=== PATIENT | female | born 1990 | race African-American/Black ===

== ENCOUNTER 2020-05-06 14:29 | Emergency (ER) | payer BC, OTHER ==
[2020-05-06 15:03] VITALS: BP 123/59; PULSE 68; TEMP 98.3; BMI 43.5
[2020-05-06] MEDS ORDERED: ONDANSETRON 4 MG/2 ML VIAL IVPUSH ONE (15:29)
[2020-05-06] MEDS ORDERED: morphine CARPU-JECT 4 MG/1 ML DISP.SYRIN IVPUSH ONE ×2 (15:29→16:43)
[2020-05-06] MEDS ORDERED: morphine SULFATE 4 MG/ML VIAL ONE (15:38)
--- NOTE | 2020-05-06 15:46 | PDOC ---
History of Present Illness - General Chief Complaint: Vaginal Bleeding Stated Complaint: Vaginal Bleeding Time Seen by Provider: 05/06/20 14:44 - History of Present Illness Initial Comments: 05/06/20 15:41 29F at reported 7.5 weeks by previous ultrasound with PMH of endometriosis and PCOS presents with vaginal bleeding, lower abdominal pain, and intractable vomiting since having a reported miscarriage two days prior. She said she was evaluated at [facility] and sent home with percocet for pain. Reports soaking two pads with blood and clots today, and 10 pads total. Denies fever. States she has not been able to keep anything down since this started. Normal BMs and passing gas. Has had three first trimester miscarriages. History of trichomonas. No other STIs reported. Occasional alcohol use, former smoker, no drug use. EMS gave 1000ml IVF and 4mg Zofran IV. Patient gave consent to access [facility] records. [facility] 05/05/20: Hg 10.1 HCG quant 59539.3 TVUS on April 21: IUP at 6wks and 1 day by crown-rump length TVUS on May 05: nonvisualization of previously noted gestational sac suggesting in progress, thickened endometrium suggesting underlying hemorrhagic material PMH/PSH: none Meds: percocet and naproxen Allergies: none PCP: Weston HUANG: Terrance MELO GENERAL/CONSTITUTIONAL: No fever or chills. No weakness. HEAD, EYES, EARS, NOSE AND THROAT: No change in vision. No ear pain or discharge. No sore throat. CARDIOVASCULAR: No chest pain or shortness of breath RESPIRATORY: No cough, wheezing, or hemoptysis. GASTROINTESTINAL: nausea, vomiting. no diarrhea or constipation. GENITOURINARY: No dysuria, frequency, or change in urination. MUSCULOSKELETAL: No joint or muscle swelling or pain. No neck or back pain. SKIN: No rash NEUROLOGIC: No headache, vertigo, loss of consciousness, or change in strength/sensation. ENDOCRINE: No increased thirst. No abnormal weight change HEMATOLOGIC/LYMPHATIC: No anemia, easy bleeding, or history of blood clots. ALLERGIC/IMMUNOLOGIC: No hives or skin allergy. PE GENERAL: Awake, alert, and fully oriented, in distress HEAD: No signs of trauma, normocephalic, atraumatic EYES: PERRLA, EOMI, sclera anicteric, conjunctiva clear ENT: Auricles normal inspection, hearing grossly normal, nares patent, jade pharynx clear without exudates. Moist mucosa NECK: Normal ROM, supple, no lymphadenopathy, JVD, or masses LUNGS: No distress, speaks full sentences, clear to auscultation bilaterally HEART: Regular rate and rhythm, normal S1 and S2, no murmurs, rubs or gallops, peripheral pulses normal and equal bilaterally. ABDOMEN: Soft, lower abdominal tenderness without guarding or rebound. EXTREMITIES : Normal inspection, Normal range of motion, no edema. No clubbing or cyanosis. NEUROLOGICAL: Normal speech, no focal sensorimotor deficits SKIN: Warm, Dry, normal turgor, no rashes or lesions noted PELVIC: some blood, unsure if os is open or closed based on my exam Vital Signs Temp Pulse Resp BP Pulse Ox 98.3 F 68 19 123/59 L 100 05/06/20 15:01 05/06/20 15:01 05/06/20 15:01 05/06/20 15:01 05/06/20 15:01 05/06/20 15:56 MDM: 29F at reported 7.5 weeks by previous ultrasound with PMH of endometriosis and PCOS presents with vaginal bleeding, lower abdominal pain, and intractable vomiting since having a reported miscarriage two days prior. TVUS from [facility] confirms in progress. -CBC, CMP, coags, T&S -TVUS -4mg zofran and 4mg morphine 05/06/20 16:52 Repeat Vitals: HR 72, BP 134/65 Patient still in pain. Will give 1000mg tylenol IV, and plan for additional 4mg of morphine IV if no improvement 05/06/20 17:02 Patient reports amazement at the effects of IV tylenol and reports that she is no longer in pain 05/06/20 18:51 TVUS: Real time examination of the pelvis utilizing both the transabdominal and transvaginal probes demonstrates the following: The uterus is slightly enlarged measuring 11.4 x 5.8 x 5.6 cm. No uterine masses are seen. Echogenic and heterogeneous material is noted within the endometrial cavity that most likely represents retained blood and blood clots. There is no definite evidence of retained products of conception. The right ovary is normal in size and texture with arterial and venous venous flow documented to the ovary. The left ovary could not be identified. There is no evidence of adnexal masses. There is a trace amount of free fluid within the cul-de-sac. IMPRESSION: Echogenic and heterogeneous material within the endometrial cavity most likely representing blood/blood clots. No definite evidence of retained products of conception. Please see above discussion. Labs: notable for Hgb 10.4 (was 10.1 yesterday at [place]), Beta-Hcg 3892.6 (down from 32680.3 yesterday). Laboratory Results - last 24 hr 05/06/20 05/06/20 05/06/20 15:35 15:35 15:35 WBC 5.0 RBC 3.44 L Hgb 10.4 L Hct 31.1 L MCV 90.3 MCH 30.1 MCHC 33.3 RDW 14.9 D Plt Count 333 MPV 8.0 D Absolute Neuts (auto) 3.7 Neutrophils % 72.9 Lymphocytes % 18.5 D Monocytes % 7.4 Eosinophils % 0.5 D Basophils % 0.7 Nucleated RBC % 0 PT with INR 12.70 INR 1.08 PTT (Actin FS) 27.7 Sodium 140 Potassium 3.9 Chloride 110 H Carbon Dioxide 22 Anion Gap 7 L BUN 6.9 L Creatinine 0.7 Est GFR (CKD-EPI)AfAm 134.75 Est GFR (CKD-EPI)NonAf 116.26 Random Glucose 84 Calcium 8.6 Total Bilirubin 0.4 AST 15 ALT 15 Alkaline Phosphatase 59 Total Protein 6.9 Albumin 3.3 L Beta HCG, Quant 3892.6 Blood Type Antibody Screen 05/06/20 15:35 WBC RBC Hgb Hct MCV MCH MCHC RDW Plt Count MPV Absolute Neuts (auto) Neutrophils % Lymphocytes % Monocytes % Eosinophils % Basophils % Nucleated RBC % PT with INR INR PTT (Actin FS) Sodium Potassium Chloride Carbon Dioxide Anion Gap BUN Creatinine Est GFR (CKD-EPI)AfAm Est GFR (CKD-EPI)NonAf Random Glucose Calcium Total Bilirubin AST ALT Alkaline Phosphatase Total Protein Albumin Beta HCG, Quant Blood Type A POSITIVE Antibody Screen Negative Signed out to night team. Awaiting call back from patient's OBGYN. Past History - Medical History Allergies/Adverse Reactions: Allergies Allergy/AdvReac Type Severity Reaction Status Date / Time No Known Allergies Allergy Verified 05/06/20 15:03 Home Medications: Ambulatory Orders Ibuprofen 600 mg PO Q6H #30 tablet 05/06/20 Naproxen 500 mg PO BID 05/06/20 COPD: No Thyroid Disease: No Other medical history: Endomitriosis - Reproductive History Is Patient Now?: No (#): 4 Para: 0 Cervical CA: No Dysfunctional Uterine Bleeding: No Ectopic : No Endometrial CA: No Polycystic Ovaries: No Therapeutic (s) & number: No Tubal Ligation: No Spontaneous : 4 - Psycho-Social/Smoking History Smoking History: Never smoked Have you smoked in the past 12 months: No Number of Cigarettes Smoked Daily: 0 Cigars Per Day: 0 Information on smoking cessation initiated: No - Substance Abuse Hx (Audit-C & DAST Scrn) How often the patient has a drink containing alcohol: Never Score: In Men: 4 or > Positive; In Women: 3 or > Positive: 0 Screen Result (Pos requires Nsg. Audit-10AR): Negative In the last yr the pt used illegal drug/Rx for NonMed reason: No Score: Yes response is considered Positive: 0 Screen Result (Positive result requires Nsg. DAST-10): Negative *Physical Exam - Vital Signs Last Vital Signs Temp Pulse Resp BP Pulse Ox 98.3 F 68 19 123/59 L 100 05/06/20 15:01 05/06/20 15:01 05/06/20 15:01 05/06/20 15:01 05/06/20 15:01 ED Treatment Course - LABORATORY CBC & Chemistry Diagram: 05/06/20 15:35 05/06/20 15:35 Discharge - Discharge Information Problems reviewed: Yes Clinical Impression/Diagnosis: Incomplete , Intractable nausea and vomiting Condition: Stable Disposition: HOME - Additional Discharge Information Prescriptions: Ibuprofen 600 mg PO Q6H #30 tablet - Follow up/Referral Referrals: Nikita Sexton [Primary Care Provider] - - Patient Discharge Instructions Patient Printed Discharge Instructions: DI for Miscarriage Additional Instructions: You should return to the hospital if you continue to have, persistent pelvic pain not relieved by your prescribed medications, dizziness, shortness of breath, new and persistent fevers, other foul smelling discolored vaginal discharge, or for any other concerns. 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 - Post Discharge Activity
--- NOTE | 2020-05-06 15:53 | PDOC ---
Documentation entered by Ashleigh Mann SCRIBE, acting as scribe for Erwin Perez MD. Erwin Perez MD: This documentation has been prepared by the amandaibeJohnathan Lincy, SCRIBE, under my direction and personally reviewed by me in its entirety. I confirm that the documentation accurately reflects all work, treatment, procedures, and medical decision making performed by me. Attending Attestation - Resident Resident Name: HiginioloreneshainaGregory - ED Attending Attestation I have performed the following: I have examined & evaluated the patient, The case was reviewed & discussed with the resident, I agree w/resident's findings & plan, Exceptions are as noted - HPI HPI: 05/06/20 15:29 The patient is a 29-year-old female, with a past medical history significant for endometriosis and PCOS who presents to the emergency department with persistent lower abdominal pain (worse on the left), nausea, and vomiting (with difficulty tolerating PO), and vaginal bleeding. The patient reports continuous vaginal bleeding with clot passing for the past 2 days, reports she went through 2 pads today. The patient reports she was seen at [facility] on Monday (05/04) for the symptoms, states they were unable to get in contact with [employer] and she was discharged home after a shot in the arm. patient reports she doesnt recall the name of the medication but reports it starts with a M. Denies fever or chills. - Physicial Exam PE: 05/06/20 15:51 Awake, alert, obese, in moderate distress Normocephalic and atraumatic PERRLA, EOMI, no scleral icterus, conjunctiva pink mmm cta rrr Abdomen soft, nondistended, bilateral lower quadrant tenderness to deep palpation; no CVA tenderness Pelvis is stable - Medical Decision Making 05/06/20 15:52 Patient is a 29-year-old female, 4 para 0, presents with persistent vaginal bleeding and abdominal pain after being diagnosed with an incomplete at [facility]. Patient received an unknown intramuscular injection prior to discharge. In the ER, patient is noted to be writhing in pain, afebrile, nontoxic-appearing. No evidence of acute abdomen is present. Will obtain transvaginal ultrasound to rule out products of conception. Will consult [facility] as needed. Discharge - Discharge Information Problems reviewed: Yes Clinical Impression/Diagnosis: Intractable nausea and vomiting, Incomplete - Follow up/Referral Referrals: Nikita Sexton [Primary Care Provider] - - Patient Discharge Instructions - Post Discharge Activity
[2020-05-06 16:21] LABS: BASO % 0.7 % (0-2.0); EOS % 0.5 % (0-4.5); HEMATOCRIT 31.1 % (32.4-45.2); HEMOGLOBIN 10.4 GM/dL (10.7-15.3); LYMPH % 18.5 % (8-40); MCH 30.1 pg (25.7-33.7); MCHC 33.3 g/dl (32.0-36.0); MEAN CELL VOLUME 90.3 fl (80-96); MONO % 7.4 % (3.8-10.2); NEUT % 72.9 % (42.8-82.8); PLATELET COUNT 333 K/MM3 (134-434); RBC 3.44 M/mm3 (3.60-5.2); RDW 14.9 % (11.6-15.6)
[2020-05-06 16:24] LABS: INR 1.08 (0.83-1.09); PROTHROMBIN TIME (PATIENT) 12.7 SEC (9.7-13.0)
[2020-05-06 16:27] LABS: ACTIVATED PTT 27.7 SECONDS (25.2-36.5)
[2020-05-06] MEDS ORDERED: ACETAMINOPHEN 1000 MG/100 ML VIAL (NON FORMULARY) IVPB ONE (16:44)
[2020-05-06] MEDS ORDERED: ACETAMINOPHEN INJECTION 100 ML IVPB ONE (16:47)
[2020-05-06 17:00] LABS: ALBUMIN 3.3 g/dl (3.4-5.0); BILIRUBIN,TOTAL 0.4 mg/dL (0.2-1); BLOOD UREA NITROGEN 6.9 mg/dL (7-18); CALCIUM 8.6 mg/dL (8.5-10.1); CREATININE 0.7 mg/dL (0.55-1.3); POTASSIUM 3.9 mmol/L (3.5-5.1); TOT PROT 6.9 g/dl (6.4-8.2)
--- OUTSIDE RECORDS SUMMARY | 2020-05-06 19:00 | XMS ---
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 Source(s) Document(s ) Leukocytes 8.3 [place] [#/volume] in 10*3/uL Hospital Blood by Automated count ID Date Data Source [id number] 05/04/2020 04:07:00 PM [facility] Value Range Interpretation Code Description Data Supporting Source(s) Document(s ) Leukocyte 1+ [place] esterase Hospital [Presence] in Urine by Test strip ID Date Data Source [id number] 05/04/2020 04:07:00 PM EDT [facility] Name Value Range Interpretation Description Data Sup porting Code Source(s) Document(s ) URINE NEGATIVE [place] NITRITES Hospital ID Date Data Source [id number] 05/04/2020 04:07:00 PM EDT [facility] Name Value Range Interpretation Description Data Sup porting Code Source(s) Document(s ) Erythrocytes 3+ [place] [#/volume] in Hospital Urine by Test strip ID Date Data Source [id number] 05/04/2020 04:07:00 PM EDT [facility] Value Range Interpretation Code Description Data Sulema rce(s) Supporting Document(s ) Bilirubin. NEGATIVE [place] total Hospital [Presence] in Urine by Test strip ID Date Data Source [id number] 05/04/2020 04:07:00 PM EDT [facility] Value Range Interpretation Description Data Sup porting Code Source(s) Document(s ) Urobilinogen 0.2 [place] [Units/volume] mg/dL Hospital in Urine by Test strip ID Date Data Source [id number] 05/04/2020 04:07:00 PM EDT [facility] Value Range Interpretation Code Description Data Sulema rce(s) Supporting Document(s ) Ketones TRACE [place] [Mass/volume Hospital ] in Urine by Test strip ID Date Data Source [id number] 05/04/2020 04:07:00 PM EDT [facility] Name Value Range Interpretation Description Data Sup porting Code Source(s) Document(s ) Glucose NEGATIVE [place] [Mass/volume Hospital ] in Urine by Test strip ID Date Data Source [id number] 05/04/2020 04:07:00 PM EDT [facility] Name Value Range Interpretation Code Description Data Sulema rce(s) Supporting Document(s ) Protein 1+ [place] [Presence] Hospital in Urine by Test strip ID Date Data Source [id number] 05/04/2020 [facility] Value Range Interpretation Code Description Data Sulema rce(s) Supporting Document(s ) pH of Urine 5.5 [place] by Test Hospital strip ID Date Data Source [id number] 05/04/2020 04:07:00 PM EDT [facility] Name Value Range Interpretation Code Description Data Supporting Source(s) Document(s ) Specific 1.037 [place] gravity of Hospital Urine by Test strip ID Date Data Source [id number] 05/04/2020 [facility]07[facility] Value Range Interpretation Description Data Sup porting Code Source(s) Document(s ) Clarity in Urine CLOUDY [place] by Refractometry Hospital automated ID Date Data Source [id number] 05/04/2020 04:07:00 PM [facility] Name Value Range Interpretation Code Description Data Supporting Source(s) Document(s ) Color of DK YELLOW [place] Urine Hospital ID Date Data Source [id number] 05/04/2020 04:07:00 PM [facility] THERAPEUTIC RANGE FOR STANDARD ORALANTIC OAGULANT THERAPY: 2.0-3.0THERAPEUTIC RANGE FOR HIGH DOSE ORALANTICOAGULANT THERAPY (MECHANICAL HEARTVALVE REPLACEMENT): 2.5-3.5 Name Value Range Interpretation Description Data Sup porting Code Source(s) Document(s ) INR in Platelet 1.1 [place] poor plasma by Hospital Coagulation assay ID Date Data Source [id number] 05/04/2020 04:07:00 PM [facility] HEMOLYZED SPECIMEN- HEMOLYSIS CAUSES CHLOE RTENING OF PT AND APTT RESULTS Name Value Range Interpretation Description Data Sup porting Code Source(s) Document(s ) PT panel - 12.7 s [place] Platelet poor [facility] plasma by Coagulation assay ID Date Data Source [id number] 05/04/2020 04:07:00 PM [facility] REFERENCE RANGES:NON- 0-5 MIU/ML.GESTATIONAL AGE BHCG QUANT LEVEL (MIU/ML) 0.2-1 WEE K 5-50 1-2 WEEKS 50-500 2-3 WEEKS 100-5000 3-4 WEEKS [phone] 4-5 WEEKS 1000-58479 5-6 WEEKS [id number] 6-8 WEEKS [id number] 2-3 MONTHS [id number] CANNOT BE INTERPRETED A TUMOR MARKER IN FEMALES.TEST PERFORMED BY [employer] [facility] CHEMILUMINESCENCE METHOD. Name Value Range Interpretation Description Data Sup porting Code Source(s) Document(s ) TOTAL HCG, 49826.4 [place] QUANTITATIVE m[IU]/mL Hospital ID Date Data Source [id number] 05/04/2020 04:07:00 PM [facility] Name Value Range Interpretation Description Data Sup porting Code Source(s) Document(s ) Natriuretic 25.1 [place] peptide B pg/mL Hospital [Mass/volume] in Serum or Plasma ID Date Data Source [id number] 05/04/2020 04:07:00 PM [facility] TEST PERFORMED BY [employer] ULTRA SENSITIVE [facility] CHEMILUMINESCENCE METHOD. Name Value Range Interpretation Description Data Sup porting Code Source(s) Document(s ) Troponin < 0.01 [place] I.cardiac ng/mL Hospital [Mass/volume ] in Serum or Plasma ID Date Data Source [id number] 05/04/2020 04:07:00 PM [facility] Name Value Range Interpretation Description Data Sup porting Code Source(s) Document(s ) Lactate 1.3 [place] [Moles/volum mmol/L Hospital e] in Serum or Plasma ID Date Data Source [id number] 05/04/2020 04:07:00 PM EDT [facility] Name Value Range Interpretation Code Description Data Sulema rce(s) Supporting Document(s ) Lipase 26 U/L [place] [Enzymatic Hospital activity/vo lume] in Serum or Plasma ID Date Data Source [id number] 05/04/2020 04:07:00 PM EDT [facility] Name Value Range Interpretation Description Data Sup porting Code Source(s) Document(s ) Aspartate 16 U/L [place] aminotransferase [place] [Enzymatic Hospital activity/volume] in Serum or Plasma ID Date Data Source [id number] 05/04/2020 04:07:00 PM EDT [facility] Name Value Range Interpretation Description Data Sup porting Code Source(s) Document(s ) Alanine 10 U/L [place] aminotransferase [place] [Enzymatic Hospital activity/volume] in Serum or Plasma ID Date Data Source [id number] 05/04/2020 04:07:00 PM EDT [facility] Name Value Range Interpretation Description Data Sup porting Code Source(s) Document(s ) Alkaline 61 U/L [place] phosphatase Hospital [Enzymatic activity/volume ] in Serum or Plasma ID Date Data Source [id number] 05/04/2020 04:07:00 PM EDT [facility] Name Value Range Interpretation Description Data Sup porting Code Source(s) Document(s ) Bilirubin.t 0.5 mg/dL [facility] [Mass/volum e] in Serum or Plasma ID Date Data Source [id number] 05/04/2020 [facility]07[facility] Value Range Interpretation Code Description Data Sulema rce(s) Supporting Document(s ) Albumin/Glob 1.2 [place] ulin [Mass Hospital Ratio] in Serum or Plasma ID Date Data Source [id number] 05/04/2020 04:07:00 PM EDT [facility] Name Value Range Interpretation Description Data Sup porting Code Source(s) Document(s ) Albumin 4.1 g/dL [place] [Mass/volume Hospital ] in Serum or Plasma ID Date Data Source [id number] 05/04/2020 04:07:00 PM EDT [facility] Name Value Range Interpretation Description Data Sup porting Code Source(s) Document(s ) Protein 7.5 g/dL [place] [Mass/volume Hospital ] in Serum or Plasma ID Date Data Source [id number] 05/04/2020 04:07:00 PM EDT [facility] Name Value Range Interpretation Description Data Sup porting Code Source(s) Document(s ) Calcium 9.0 mg/dL [place] [Mass/volume Hospital ] in Serum or Plasma ID Date Data Source [id number] 05/04/2020 04:07:00 PM EDT [facility] Name Value Range Interpretation Code Description Data Sulema rce(s) Supporting Document(s ) Urea 10.0 [place] nitrogen/Cre Hospital atinine [Mass Ratio] in Serum or Plasma ID Date Data Source [id number] 05/04/2020 04:07:00 PM EDT [facility] Name Value Range Interpretation Description Data Sup porting Code Source(s) Document(s ) Creatinine 0.9 mg/dL [place] [Mass/volume] Hospital in Serum or Plasma ID Date Data Source [id number] 05/04/2020 04:07:00 PM EDT [facility] Name Value Range Interpretation Description Data Sup porting Code Source(s) Document(s ) Urea nitrogen 9 mg/dL [place] [Mass/volume] Hospital in Serum or Plasma ID Date Data Source [id number] 05/04/2020 04:07:00 PM EDT [facility] Name Value Range Interpretation Code Description Data Sulema rce(s) Supporting Document(s ) Anion gap in 13 [place] Serum or Hospital Plasma ID Date Data Source [id number] 05/04/2020 04:07:00 PM EDT [facility] Name Value Range Interpretation Description Data Sup porting Code Source(s) Document(s ) Carbon 24 mmol/L [place] dioxide, Hospital total [Moles/volu me] in Serum or Plasma ID Date Data Source [id number] 05/04/2020 04:07:00 PM EDT [facility] Name Value Range Interpretation Description Data Sup porting Code Source(s) Document(s ) Chloride 106 [place] [Moles/volum mmol/L Hospital e] in Serum or Plasma ID Date Data Source [id number] 05/04/2020 04:07:00 PM EDT [facility] Name Value Range Interpretation Description Data Sup porting Code Source(s) Document(s ) Potassium 4.3 [place] [Moles/volume mmol/L Hospital ] in Serum or Plasma ID Date Data Source [id number] 05/04/2020 04:07:00 PM EDT [facility] Name Value Range Interpretation Description Data Sup porting Code Source(s) Document(s ) Sodium 139 mmol/L [place] [Moles/volu Hospital me] in Serum or Plasma ID Date Data Source [id number] 05/04/2020 04:07:00 PM EDT [facility] Name Value Range Interpretation Description Data Sup porting Code Source(s) Document(s ) Glucose 93 mg/dL [place] [Mass/volume Hospital ] in Serum or Plasma ID Date Data Source [id number] 05/04/2020 04:07:00 PM EDT [facility] Name Value Range Interpretation Code Description Data Sulema rce(s) Supporting Document(s ) URINE 0-5 [facility] CASTS ID Date Data Source [id number] 05/04/2020 04:07:00 PM EDT [facility] Name Value Range Interpretation Description Data Sup porting Code Source(s) Document(s ) URINE 1+ [place] EPITHELIAL Hospital CELLS ID Date Data Source [id number] 05/04/2020 04:07:00 PM EDT [facility] Name Value Range Interpretation Description Data Sup porting Code Source(s) Document(s ) Erythrocytes 10-20 [place] [#/area] in /[HPF] Hospital Urine sediment by Automated count ID Date Data Source [id number] 05/04/2020 04:07:00 PM EDT [facility] Name Value Range Interpretation Description Data Sup porting Code Source(s) Document(s ) Leukocytes 5-10 [place] [#/area] in /[HPF] Hospital Urine sediment by Automated count ID Date Data Source [id number] 05/04/2020 04:07:00 PM EDT [facility] Value Range Interpretation Code Description Data Supporting Source(s) Document(s ) Leukocyte 1+ [place] esterase Hospital [Presence] in Urine by Test strip ID Date Data Source [id number] 05/04/2020 04:07:00 PM EDT [facility] Name Value Range Interpretation Description Data Sup porting Code Source(s) Document(s ) URINE NEGATIVE [facility] Hospital ID Date Data Source [id number] 05/04/2020 04:07:00 PM EDT [facility] Name Value Range Interpretation Description Data Sup porting Code Source(s) Document(s ) Erythrocytes 3+ [place] [#/volume] in Hospital Urine by Test strip ID Date Data Source [id number] 05/04/2020 04:07:00 PM EDT [facility] Name Value Range Interpretation Code Description Data Sulema rce(s) Supporting Document(s ) Bilirubin. NEGATIVE [place] total Hospital [Presence] in Urine by Test strip ID Date Data Source [id number] 05/04/2020 04:07:00 PM EDT [facility] Name Value Range Interpretation Description Data Sup porting Code Source(s) Document(s ) Urobilinogen 0.2 [place] [Units/volume] mg/dL Hospital in Urine by Test strip ID Date Data Source [id number] 05/04/2020 04:07:00 PM EDT [facility] Name Value Range Interpretation Code Description Data Sulema rce(s) Supporting Document(s ) Ketones TRACE [place] [Mass/volume Hospital ] in Urine by Test strip ID Date Data Source [id number] 05/04/2020 04:07:00 PM EDT [facility] Name Value Range Interpretation Description Data Sup porting Code Source(s) Document(s ) Glucose NEGATIVE [place] [Mass/volume Hospital ] in Urine by Test strip ID Date Data Source [id number] 05/04/2020 04:07:00 PM EDT [facility] Name Value Range Interpretation Code Description Data Sulema rce(s) Supporting Document(s ) Protein 1+ [place] [Presence] Hospital in Urine by Test strip ID Date Data Source [id number] 05/04/2020 04:07:00 PM EDT [facility] Name Value Range Interpretation Code Description Data Sulema rce(s) Supporting Document(s ) pH of Urine 5.5 [place] by Test Hospital strip ID Date Data Source [id number] 05/04/2020 04:07:00 PM [facility] Name Value Range Interpretation Code Description Data Supporting Source(s) Document(s ) Specific 1.037 [place] gravity of Hospital Urine by Test strip ID Date Data Source [id number] 05/04/2020 [facility] Value Range Interpretation Description Data Sup porting Code Source(s) Document(s ) Clarity in Urine CLOUDY [place] by Refractometry Hospital automated ID Date Data Source [id number] 05/04/2020 04:07:00 PM [facility] Name Value Range Interpretation Code Description Data Supporting Source(s) Document(s ) Color of DK YELLOW [place] Urine Hospital ID Date Data Source [id number] 05/04/2020 04:07:00 PM [facility] THERAPEUTIC RANGE FOR STANDARD ORALANTIC OAGULANT THERAPY: 2.0-3.0THERAPEUTIC RANGE FOR HIGH DOSE ORALANTICOAGULANT THERAPY (MECHANICAL HEARTVALVE REPLACEMENT): 2.5-3.5 Name Value Range Interpretation Description Data Sup porting Code Source(s) Document(s ) INR in Platelet 1.1 [place] poor plasma by [facility] Coagulation assay ID Date Data Source [id number] 05/04/2020 04:07:00 PM [facility] HEMOLYZED SPECIMEN- HEMOLYSIS CAUSES CHLOE RTENING OF PT AND APTT RESULTS Name Value Range Interpretation Description Data Sup porting Code Source(s) Document(s ) PT panel - 12.7 s [place] Platelet poor [facility] plasma by Coagulation assay ID Date Data Source [id number] 05/04/2020 [facility]07[facility] Value Range Interpretation Description Data Sup porting Code Source(s) Document(s ) Platelet mean 9.7 fL [facility] [Entitic volume] in Blood by Automated count ID Date Data Source [id number] 05/04/2020 04:07:00 PM EDT [facility] Value Range Interpretation Description Data Sup porting Code Source(s) Document(s ) Platelets 392 [place] [#/volume] in 10*3/uL Hospital Blood by Automated count ID Date Data Source [id number] 05/04/2020 04:07:00 PM EDT [facility] Value Range Interpretation Description Data Sup porting Code Source(s) Document(s ) Erythrocyte 12.7 % [facility] width [Ratio] by Automated count ID Date Data Source [id number] 05/04/2020 04:07:00 PM EDT [facility] Value Range Interpretation Description Data Sup porting Code Source(s) Document(s ) Erythrocyte mean 33.7 [place] corpuscular g/dL Hospital hemoglobin concentration [Mass/volume] by Automated count ID Date Data Source [id number] 05/04/2020 [facility] Description Data Sup porting Code Source(s) Document(s ) Erythrocyte 29.7 pg [facility] corpuscular hemoglobin [Entitic mass] by Automated count ID Date Data Source [id number] 05/04/2020 [facility] Interpretation Description Data Sup porting Code Source(s) Document(s ) Erythrocyte 87.9 fL [facility] corpuscular volume [Entitic volume] by Automated count ID Date Data Source [id number] 05/04/2020 04:07:00 PM [facility] Value Range Interpretation Description Data Sup porting Code Source(s) Document(s ) Hematocrit 33.5 % [place] [Volume Hospital Fraction] of Blood by Automated count ID Date Data Source [id number] 05/04/2020 04:07:00 PM EDT [facility] Name Value Range Interpretation Description Data Sup porting Code Source(s) Document(s ) Hemoglobin 11.3 g/dL [place] [Mass/volume] Hospital in Blood ID Date Data Source [id number] 05/04/2020 04:07:00 PM EDT [facility] Name Value Range Interpretation Description Data Sup porting Code Source(s) Document(s ) Erythrocytes 3.81 [place] [#/volume] in 10*6/uL Hospital Blood by Automated count ID Date Data Source [id number] 05/04/2020 04:07:00 PM EDT [facility] Name Value Range Interpretation Description Data Sup porting Code Source(s) Document(s ) Leukocytes 9.5 [place] [#/volume] in 10*3/uL Hospital Blood by Automated count ID Date Data Source [id number] 05/04/2020 04:07:00 PM EDT [facility] Name Value Range Interpretation Description Data Sup porting Code Source(s) Document(s ) Natriuretic 25.1 [place] peptide B pg/mL Hospital [Mass/volume] in Serum or Plasma ID Date Data Source [id number] 05/04/2020 04:07:00 PM [facility] TEST PERFORMED BY [employer] [facility] [facility] [facility] CHEMILUMINESCENCE METHOD. Name Value Range Interpretation Description Data Sup porting Code Source(s) Document(s ) Troponin < 0.01 [place] I.cardiac ng/mL Hospital [Mass/volume ] in Serum or Plasma ID Date Data Source [id number] 05/04/2020 [facility]07[facility] Value Range Interpretation Description Data Sup porting Code Source(s) Document(s ) Lactate 1.3 [place] [Moles/volum mmol/L Hospital e] in Serum or Plasma ID Date Data Source [id number] 05/04/2020 04:07:00 PM EDT [facility] Value Range Interpretation Code Description Data Sulema rce(s) Supporting Document(s ) URINE 0-5 [facility] CASTS ID Date Data Source [id number] 05/04/2020 04:07:00 PM EDT [facility] Value Range Interpretation Description Data Sup porting Code Source(s) Document(s ) URINE 1+ [place] EPITHELIAL [facility] CELLS ID Date Data Source [id number] 05/04/2020 04:07:00 PM EDT [facility] Value Range Interpretation Description Data Sup porting Code Source(s) Document(s ) Erythrocytes 10-20 [place] [#/area] in /[HPF] Hospital Urine sediment by Automated count ID Date Data Source [id number] 05/04/2020 04:07:00 PM EDT [facility] Value Range Interpretation Description Data Sup porting Code Source(s) Document(s ) Leukocytes 5-10 [place] [#/area] in /[HPF] Hospital Urine sediment by Automated count ID Date Data Source [id number] 04/21/2020 [facility] Description Data Sup porting Code Source(s) Document(s ) Choriogonadotropin POSITIVE White ( test) [place] [Presence] in Urine Hospital ID Date Data Source [id number] 04/21/2020 07:48:00 PM EDT [facility] Value Range Interpretation Description Data Sup porting Code Source(s) Document(s ) Mucus PRESENT [place] [Presence] in Hospital Urine sediment by Light microscopy ID Date Data Source [id number] 04/21/2020 07:48:00 PM EDT [facility] Value Range Interpretation Description Data Sup porting Code Source(s) Document(s ) Bacteria 1+ [place] [#/area] in Hospital Urine sediment by Microscopy high power field ID Date Data Source [id number] 04/21/2020 07:48:00 PM EDT [facility] Name Value Range Interpretation Description Data Sup porting Code Source(s) Document(s ) Erythrocytes 0-3 [place] [#/area] in /[HPF] Hospital Urine sediment by Microscopy high power field ID Date Data Source [id number] 04/21/2020 07:48:00 PM EDT [facility] Name Value Range Interpretation Description Data Sup porting Code Source(s) Document(s ) Leukocytes 0-3 [place] [#/area] in /[HPF] Hospital Urine sediment by Microscopy high power field ID Date Data Source [id number] 04/21/2020 07:48:00 PM EDT [facility] Value Range Interpretation Description Data Sup porting Code Source(s) Document(s ) Choriogonadotropin POSITIVE White ( test) [place] [Presence] in Urine Hospital ID Date Data Source [id number] [facility] Description Data Sup porting Code Source(s) Document(s ) Mucus PRESENT [place] [Presence] in Hospital Urine sediment by Light microscopy ID Date Data Source [id number] 04/[facility] Interpret[facility] Description Data Sup porting Code Source(s) Document(s ) Bacteria 1+ [place] [#/area] in Hospital Urine sediment by Microscopy high power field ID Date Data Source [id number] 04/21/2020 07:48:00 PM EDT [facility] Value Range Interpretation Description Data Sup porting Code Source(s) Document(s ) Erythrocytes 0-3 [place] [#/area] in /[HPF] Hospital Urine sediment by Microscopy high power field ID Date Data Source [id number] 04/[facility] Interpretation Description Data Sup porting Code Source(s) Document(s ) Leukocytes 0-3 [place] [#/area] in /[HPF] Hospital Urine sediment by Microscopy high power field ID Date Data Source [id number] 04/[facility] Interpret[facility] Description Data Sup porting Code Source(s) Document(s ) Choriogonadotropin POSITIVE White ( test) [place] [Presence] in Urine Hospital ID Date Data Source [id number] 04/21/2020 [facility] Interpretation Description Data Sup porting Code Source(s) Document(s ) Mucus PRESENT [place] [Presence] in Hospital Urine sediment by Light microscopy ID Date Data Source [id number] 04/21/[facility] Interpret[facility] Description Data Sup porting Code Source(s) Document(s ) Bacteria 1+ [place] [#/area] in Hospital Urine sediment by Microscopy high power field ID Date Data Source [id number] 04/21/2020 [facility] Value Range Interpretation Description Data Sup porting Code Source(s) Document(s ) Erythrocytes 0-3 [place] [#/area] in /[HPF] Hospital Urine sediment by Microscopy high power field ID Date Data Source [id number] 04/21/[facility] Interpretation Description Data Sup porting Code Source(s) Document(s ) Leukocytes 0-3 [place] [#/area] in /[HPF] Hospital Urine sediment by Microscopy high power field ID Date Data Source [id number] 04/21/2020 07:48:00 PM EDT [facility] Name Value Range Interpretation Description Data Sup porting Code Source(s) Document(s ) Leukocyte NEGATIVE [place] esterase Hospital [Presence] in Urine by Test strip ID Date Data Source [id number] 04/21/2020 07:48:00 PM EDT [facility] Name Value Range Interpretation Description Data Sup porting Code Source(s) Document(s ) URINE NEGATIVE [place] NITRITES Hospital ID Date Data Source [id number] 04/21/2020 07:48:00 PM EDT [facility] Name Value Range Interpretation Description Data Sup porting Code Source(s) Document(s ) Erythrocytes NEGATIVE [place] [#/volume] in Hospital Urine by Test strip ID Date Data Source [id number] 04/21/2020 [facility] Value Range Interpretation Code Description Data Sulema rce(s) Supporting Document(s ) Bilirubin. NEGATIVE [place] total Hospital [Presence] in Urine by Test strip ID Date Data Source [id number] 04/21/2020 07:48:00 PM EDT [facility] Name Value Range Interpretation Description Data Sup porting Code Source(s) Document(s ) Urobilinogen 1.0 [place] [Units/volume] mg/dL Hospital in Urine by Test strip ID Date Data Source [id number] 04/21/2020 07:48:00 PM EDT [facility] Name Value Range Interpretation Code Description Data Sulema rce(s) Supporting Document(s ) Ketones 1+ [place] [Mass/volume Hospital ] in Urine by Test strip ID Date Data Source [id number] 04/21/2020 07:48:00 PM EDT [facility] Name Value Range Interpretation Description Data Sup porting Code Source(s) Document(s ) Glucose NEGATIVE [place] [Mass/volume Hospital ] in Urine by Test strip ID Date Data Source [id number] 04/21/2020 07:48:00 PM EDT [facility] Name Value Range Interpretation Code Description Data Sulema rce(s) Supporting Document(s ) Protein TRACE [place] [Presence] Hospital in Urine by Test strip ID Date Data Source [id number] 04/21/2020 07:48:00 PM EDT [facility] Name Value Range Interpretation Code Description Data Sulema rce(s) Supporting Document(s ) pH of Urine 7.0 [place] by Test Hospital strip ID Date Data Source [id number] 04/21/2020 07:48:00 PM EDT [facility] Name Value Range Interpretation Code Description Data Supporting Source(s) Document(s ) Specific 1.031 [place] gravity of Hospital Urine by Test strip ID Date Data Source [id number] 04/21/2020 07:48:00 PM EDT [facility] Name Value Range Interpretation Description Data Sup porting Code Source(s) Document(s ) Clarity in Urine CLOUDY [place] by Refractometry Hospital automated ID Date Data Source [id number] 04/21/2020 07:48:00 PM EDT [facility] Name Value Range Interpretation Code Description Data Sulema rce(s) Supporting Document(s ) Color of YELLOW [place] Urine Hospital ID Date Data Source [id number] 04/21/2020 07:39:00 PM EDT [facility] Name Value Range Interpretation Code Description Data Supporting Source(s) Document(s ) NUCLEATED RBCS 0.0 % [place] (AUTO Hospital DIFF%)DIS ID Date Data Source [id number] 04/21/2020 07:39:00 PM EDT [facility] Name Value Range Interpretation Description Data Sup porting Code Source(s) Document(s ) Differential AUTOMATED [place] cell count [facility] method - Blood ID Date Data Source [id number] 04/21/2020 07:39:00 PM EDT [facility] Name Value Range Interpretation Description Data Sup porting Code Source(s) Document(s ) Immature 0.01 [place] granulocytes 10*3/uL Hospital [#/volume] in Blood by Automated count ID Date Data Source [id number] 04/21/2020 07:39:00 PM EDT [facility] Name Value Range Interpretation Description Data Sup porting Code Source(s) Document(s ) Basophils 0.04 [place] [#/volume] in 10*3/uL Hospital Blood by Automated count ID Date Data Source [id number] 04/21/2020 07:39:00 PM EDT [facility] Value Range Interpretation Description Data Sup porting Code Source(s) Document(s ) Eosinophils 0.08 [place] [#/volume] in 10*3/uL Hospital Blood by Automated count ID Date Data Source [id number] 04/21/2020 07:39:00 PM EDT [facility] Name Value Range Interpretation Description Data Sup porting Code Source(s) Document(s ) Monocytes 0.66 [place] [#/volume] in 10*3/uL Hospital Blood by Automated count ID Date Data Source [id number] 04/21/2020 07:39:00 PM EDT [facility] Name Value Range Interpretation Description Data Sup porting Code Source(s) Document(s ) Lymphocytes 1.96 [place] [#/volume] in 10*3/uL Hospital Blood by Automated count ID Date Data Source [id number] 04/21/2020 07:39:00 PM EDT [facility] Value Range Interpretation Description Data Sup porting Code Source(s) Document(s ) Neutrophils 3.42 [place] [#/volume] in 10*3/uL Hospital Blood by Automated count ID Date Data Source [id number] 04/21/2020 07:39:00 PM EDT [facility] Value Range Interpretation Description Data Sup porting Code Source(s) Document(s ) Nucleated 0.0 % [place] erythrocytes/10 Hospital 0 leukocytes [Ratio] in Blood by Automated count ID Date Data Source [id number] 04/21/2020 07:39:00 PM EDT [facility] Value Range Interpretation Description Data Sup porting Code Source(s) Document(s ) Immature 0.2 % [place] granulocytes/10 Hospital 0 leukocytes in Blood by Automated count ID Date Data Source [id number] 04/21/2020 07:39:00 PM EDT [facility] Value Range Interpretation Description Data Sup porting Code Source(s) Document(s ) Basophils/100 0.6 % [place] leukocytes in Hospital Blood by Automated count ID Date Data Source [id number] 04/21/2020 07:39:00 PM EDT [facility] Value Range Interpretation Description Data Sup porting Code Source(s) Document(s ) Eosinophils/100 1.3 % [place] leukocytes in Hospital Blood by Automated count ID Date Data Source [id number] 04/21/2020 07:39:00 PM EDT [facility] Value Range Interpretation Description Data Sup porting Code Source(s) Document(s ) Monocytes/100 10.7 % [place] leukocytes in Hospital Blood by Automated count ID Date Data Source [id number] 04/21/2020 07:39:00 PM EDT [facility] Name Value Range Interpretation Description Data Sup porting Code Source(s) Document(s ) Lymphocytes/10 31.8 % [place] 0 leukocytes Hospital in Blood by Automated count ID Date Data Source [id number] 04/21/2020 [facility] Value Range Interpretation Description Data Sup porting Code Source(s) Document(s ) Neutrophils/10 55.4 % [place] 0 leukocytes Hospital in Blood by Automated count ID Date Data Source [id number] 04/21/2020 07:39:00 PM [facility] REFERENCE RANGES:NON- 0-5 MIU/ML.GESTATIONAL AGE BHCG QUANT LEVEL (MIU/ML) 0.2-1 WEE K 5-50 1-2 WEEKS 50-500 2-3 WEEKS 100-5000 3-4 WEEKS 500-07373 4-5 WEEKS 1000-63862 5-6 WEEKS [phone] 6-8 WEEKS [phone] 2-3 MONTHS [id number] CANNOT BE INTERPRETED A TUMOR MARKER IN FEMALES.TEST PERFORMED BY [facility] CHEMILUMINESCENCE METHOD. Name Value Range Interpretation Description Data Sup porting Code Source(s) Document(s ) TOTAL HCG, 04054.1 [place] QUANTITATIVE m[IU]/mL Hospital ID Date Data Source [id number] 04/21/2020 07:39:00 PM [facility] Name Value Range Interpretation Code Description Data Sulema rce(s) Supporting Document(s ) Lipase 26 U/L [place] [Enzymatic Hospital activity/vo lume] in Serum or Plasma ID Date Data Source [id number] 04/21/2020 07:39:00 PM [facility] Name Value Range Interpretation Description Data Sup porting Code Source(s) Document(s ) Aspartate 15 U/L [place] aminotransferase [place] [Enzymatic Hospital activity/volume] in Serum or Plasma ID Date Data Source [id number] 04/21/2020 07:39:00 PM EDT [facility] Name Value Range Interpretation Description Data Sup porting Code Source(s) Document(s ) Alanine 10 U/L [place] aminotransferase [place] [Enzymatic Hospital activity/volume] in Serum or Plasma ID Date Data Source [id number] 04/21/2020 07:39:00 PM EDT [facility] Name Value Range Interpretation Description Data Sup porting Code Source(s) Document(s ) Alkaline 62 U/L [place] phosphatase Hospital [Enzymatic activity/volume ] in Serum or Plasma ID Date Data Source [id number] 04/21/2020 [facility]:39[facility] Value Range Interpretation Description Data Sup porting Code Source(s) Document(s ) Bilirubin.t 0.4 mg/dL [facility] [Mass/volum e] in Serum or Plasma ID Date Data Source [id number] 04/21/2020 07:39:[facility] Value Range Interpretation Code Description Data Sulema rce(s) Supporting Document(s ) Albumin/Glob 1.5 [facility] [Mass Hospital Ratio] in Serum or Plasma ID Date Data Source [id number] 04/21/2020 07:39:00 PM EDT [facility] Name Value Range Interpretation Description Data Sup porting Code Source(s) Document(s ) Albumin 4.2 g/dL [place] [Mass/volume Hospital ] in Serum or Plasma ID Date Data Source [id number] 04/21/2020 07:39:[facility] Value Range Interpretation Description Data Sup porting Code Source(s) Document(s ) Protein 7.0 g/dL [place] [Mass/volume Hospital ] in Serum or Plasma ID Date Data Source [id number] 04/21/2020 07:39:00 PM EDT [facility] Name Value Range Interpretation Description Data Sup porting Code Source(s) Document(s ) Calcium 9.0 mg/dL [place] [Mass/volume Hospital ] in Serum or Plasma ID Date Data Source [id number] 04/21/2020 07:39:00 PM EDT [facility] Name Value Range Interpretation Code Description Data Sulema rce(s) Supporting Document(s ) Urea 22.5 [place] nitrogen/Cre Hospital atinine [Mass Ratio] in Serum or Plasma ID Date Data Source [id number] 04/21/2020 07:39:00 PM EDT [facility] Value Range Interpretation Description Data Sup porting Code Source(s) Document(s ) Creatinine 0.8 mg/dL [place] [Mass/volume] Hospital in Serum or Plasma ID Date Data Source [id number] 04/21/2020 07:39:00 PM EDT [facility] Name Value Range Interpretation Description Data Sup porting Code Source(s) Document(s ) Urea 18 mg/dL [place] nitrogen Hospital [Mass/volume ] in Serum or Plasma ID Date Data Source [id number] 04/21/2020 07:39:00 PM EDT [facility] Value Range Interpretation Code Description Data Sulema rce(s) Supporting Document(s ) Anion gap in 10 [place] Serum or [facility] Plasma ID Date Data Source [id number] 04/21/2020 07:39:00 PM EDT [facility] Value Range Interpretation Description Data Sup porting Code Source(s) Document(s ) Carbon 24 mmol/L [place] dioxide, Hospital total [Moles/volu me] in Serum or Plasma ID Date Data Source [id number] 04/21/2020 07:39:00 PM EDT [facility] Name Value Range Interpretation Description Data Sup porting Code Source(s) Document(s ) Chloride 106 [place] [Moles/volum mmol/L Hospital e] in Serum or Plasma ID Date Data Source [id number] 04/21/2020 07:39:00 PM EDT [facility] Name Value Range Interpretation Description Data Sup porting Code Source(s) Document(s ) Potassium 4.3 [place] [Moles/volume mmol/L Hospital ] in Serum or Plasma ID Date Data Source [id number] 04/21/2020 07:39:00 PM EDT [facility] Name Value Range Interpretation Description Data Sup porting Code Source(s) Document(s ) Sodium 136 mmol/L [place] [Moles/volu Hospital me] in Serum or Plasma ID Date Data Source [id number] 04/21/2020 07:39:00 PM EDT [facility] Name Value Range Interpretation Description Data Sup porting Code Source(s) Document(s ) Glucose 87 mg/dL [place] [Mass/volume Hospital ] in Serum or Plasma ID Date Data Source [id number] 04/21/2020 07:39:00 PM EDT [facility] Name Value Range Interpretation Code Description Data Supporting Source(s) Document(s ) NUCLEATED RBCS 0.0 % [place] (AUTO Hospital DIFF%)DIS ID Date Data Source [id number] 04/21/2020 07:39:00 PM EDT [facility] Name Value Range Interpretation Description Data Sup porting Code Source(s) Document(s ) Differential AUTOMATED [place] cell count Hospital method - Blood ID Date Data Source [id number] 04/21/2020 07:39:00 PM EDT [facility] Name Value Range Interpretation Description Data Sup porting Code Source(s) Document(s ) Immature 0.01 [place] granulocytes 10*3/uL Hospital [#/volume] in Blood by Automated count ID Date Data Source [id number] 04/21/2020 07:39:00 PM EDT [facility] Value Range Interpretation Description Data Sup porting Code Source(s) Document(s ) Basophils 0.04 [place] [#/volume] in 10*3/uL Hospital Blood by Automated count ID Date Data Source [id number] 04/21/2020 07:39:00 PM EDT [facility] Value Range Interpretation Description Data Sup porting Code Source(s) Document(s ) Eosinophils 0.08 [place] [#/volume] in 10*3/uL Hospital Blood by Automated count ID Date Data Source [id number] 04/21/2020 07:39:00 PM EDT [facility] Value Range Interpretation Description Data Sup porting Code Source(s) Document(s ) Monocytes 0.66 [place] [#/volume] in 10*3/uL Hospital Blood by Automated count ID Date Data Source [id number] 04/[facility]/2020 [facility] Description Data Sup porting Code Source(s) Document(s ) Lymphocytes 1.96 [place] [#/volume] in 10*3/uL Hospital Blood by Automated count ID Date Data Source [id number] 04/21/2020 07:39:00 PM EDT [facility] Value Range Interpretation Description Data Sup porting Code Source(s) Document(s ) Neutrophils 3.42 [place] [#/volume] in 10*3/uL Hospital Blood by Automated count ID Date Data Source [id number] 04/21/2020 07:39:00 PM EDT [facility] Value Range Interpretation Description Data Sup porting Code Source(s) Document(s ) Nucleated 0.0 % [place] erythrocytes/10 Hospital 0 leukocytes [Ratio] in Blood by Automated count ID Date Data Source [id number] 04/21/2020 07:39:00 PM EDT [facility] Value Range Interpretation Description Data Sup porting Code Source(s) Document(s ) Immature 0.2 % [place] granulocytes/10 Hospital 0 leukocytes in Blood by Automated count ID Date Data Source [id number] 04/21/2020 07:39:00 PM EDT [facility] Value Range Interpretation Description Data Sup porting Code Source(s) Document(s ) Basophils/100 0.6 % [place] leukocytes in Hospital Blood by Automated count ID Date Data Source [id number] 04/21/2020 07:39:00 PM EDT [facility] Value Range Interpretation Description Data Sup porting Code Source(s) Document(s ) Eosinophils/100 1.3 % [place] leukocytes in Hospital Blood by Automated count ID Date Data Source [id number] 04/21/2020 07:39:00 PM EDT [facility] Value Range Interpretation Description Data Sup porting Code Source(s) Document(s ) Monocytes/100 10.7 % [place] leukocytes in Hospital Blood by Automated count ID Date Data Source [id number] 04/21/2020 07:39:00 PM EDT [facility] Value Range Interpretation Description Data Sup porting Code Source(s) Document(s ) Lymphocytes/10 31.8 % [place] 0 leukocytes Hospital in Blood by Automated count ID Date Data Source [id number] 04/21/2020 07:39:00 PM EDT [facility] Name Value Range Interpretation Description Data Sup porting Code Source(s) Document(s ) Neutrophils/10 55.4 % [place] 0 leukocytes Hospital in Blood by Automated count ID Date Data Source [id number] 04/21/2020 07:39:00 PM EDT [facility] Value Range Interpretation Description Data Sup porting Code Source(s) Document(s ) Platelet mean 9.5 fL [place] volume Hospital [Entitic volume] in Blood by Automated count ID Date Data Source [id number] 04/21/2020 07:39:00 PM EDT [facility] Value Range Interpretation Description Data Sup porting Code Source(s) Document(s ) Platelets 396 [place] [#/volume] in 10*3/uL Hospital Blood by Automated count ID Date Data Source [id number] 04/[facility]/2020 [facility] Description Data Sup porting Code Source(s) Document(s ) Erythrocyte 12.9 % [facility] width [Ratio] by Automated count ID Date Data Source [id number] 04/21/2020 07:39:00 PM EDT [facility] Value Range Interpretation Description Data Sup porting Code Source(s) Document(s ) Erythrocyte mean 32.6 [place] corpuscular g/dL Hospital hemoglobin concentration [Mass/volume] by Automated count ID Date Data Source [id number] 04/21/2020 [facility] Interpretation Description Data Sup porting Code Source(s) Document(s ) Erythrocyte 28.8 pg [facility] corpuscular hemoglobin [Entitic mass] by Automated count ID Date Data Source [id number] 04/21/2020 07:39:00 PM [facility] Value Range Interpretation Description Data Sup porting Code Source(s) Document(s ) Erythrocyte 88.1 fL [facility] corpuscular volume [Entitic volume] by Automated count ID Date Data Source [id number] 04/21/2020 07:39:00 PM EDT [facility] Name Value Range Interpretation Description Data Sup porting Code Source(s) Document(s ) Hematocrit 33.4 % [place] [Volume Hospital Fraction] of Blood by Automated count ID Date Data Source [id number] 04/21/2020 07:39:00 PM EDT [facility] Name Value Range Interpretation Description Data Sup porting Code Source(s) Document(s ) Hemoglobin 10.9 g/dL [place] [Mass/volume] Hospital in Blood ID Date Data Source [id number] 04/21/2020 07:39:00 PM EDT [facility] Name Value Range Interpretation Description Data Sup porting Code Source(s) Document(s ) Erythrocytes 3.79 [place] [#/volume] in 10*6/uL Hospital Blood by Automated count ID Date Data Source [id number] 04/21/2020 07:39:00 PM EDT [facility] Name Value Range Interpretation Description Data Sup porting Code Source(s) Document(s ) Leukocytes 6.2 [place] [#/volume] in 10*3/uL Hospital Blood by Automated count ID Date Data Source [id number] 01/20/2019 08:46:00 PM EDT [facility] Indication: Left shoulder pain.Two views of the left shoulder demonstrates no evidence of fracture or dislocation. No bony abnormality is noted.Impression: Unremarkable radiograph of the shoulder . Name Value Range Interpretation Code Description Data Sulema rce(s) Supporting Document(s ) ID Date Data Source [id number] 01/20/2019 07:36:00 PM EDT [facility] Name Value Range Interpretation Description Data Sup porting Code Source(s) Document(s ) C. Not Normal (applies C. [facility] Trachomatis DetectedReference to non-numeric Trachomatis Hea lth Amp Range: Not results) Amp System Detected N. Gonorrhea Not Normal (applies N. Gonorrhea [facility] by LCR DetectedReference to non-numeric by LCR Health Range: Not results) System DetectedThis test was performed using the APTIMA COMBO2(R) Assay(GEN-PROBE(R )).Please add the following message:For additional information, please refer [email or web address]( This link is being provided for informational/edu cationalpurposes only)Test Performed at:[facility] [employer], [place], [place] [address]Maury Nickerson M.D. ID Date Data Source [id number] 01/20/2019 07:36:00 PM EDT [facility] Name Value Range Interpretation Description Data Source(s ) Supporting Code Document(s ) Reagin Ab Non-react Normal (applies to RPR. [facility] [Presence] marky non-numeric Health System in Serum by results) RPR ID Date Data Source [id number] 01/20/2019 07:36:00 PM EDT [facility] Name Value Range Interpretation Description Data Sup porting Code Source(s) Document(s ) Deprecated Micro Normal (applies Aerobic [facility] Bacteria Result to non-numeric Culture, Urine Health identified in Final results) System Urine by Culture Aerobe Reading culture Note::< 10,000 CFU/ML ID Date Data Source [id number] 01/20/2019 06:20:00 PM EDT [facility] Name Value Range Interpretation Description Data Sup porting Code Source(s) Document(s ) Color YELLOW Yellow Normal (applies Color [facility] to non-numeric Health results) System pH.. 6.0 4.6 - 8.0 Normal (applies pH.. [facility] {pH_units} pH units to non-numeric Health results) System Specific > 1.030 1.001 - Normal (applies Urine Specific [facility] gravity of 1.035 to non-numeric [facility] Urine results) System Appearance of CLEAR Clear Normal (applies Urine [facility] Urine to non-numeric Appearance Health results) System Urobilinogen 1.0 mg/dL 0.2 - 1.0 Normal (applies Urobilinogen [facility] [Mass/volume] mg/dL to non-numeric [facility] in Urine results) System Bilirubin NEGATIVE Negative Normal (applies Bilirubin [facility] Urine Sm to Lg to non-numeric Urine Health results) System Ketones 40 mg/dL Negative Abnormal Ketones UA [facility] [Mass/volume] mg/dL (applies to Health in Urine non-numeric System results) Protein 30 mg/dl < 30 Normal (applies Protein [facility] [Mass/volume] mg/dl to non-numeric Health in Serum or results) System Plasma Glucose, UA NEGATIVE < 50 Normal (applies Glucose, UA [facility] mg/dl to non-numeric Health results) System Urine Blood NEGATIVE Negative Normal (applies Urine Blood [facility] Sm to Lg to non-numeric Health results) System Nitrate+Nitrit NEGATIVE Negative Normal (applies Nitrite [facility] Neg/Pos to non-numeric Health [Mass/volume] results) System in Unspecified specimen Red Blood 0 {/HPF} 0 - 1 Normal (applies Red Blood [facility] Cells /HPF to non-numeric Cells Health results) System Leukocytes 0 {/HPF} 0 - 2 Normal (applies White Blood [facility] [#/volume] in /HPF to non-numeric Cells Health Unspecified results) System specimen by Automated count Leukocyte NEGATIVE Negative Normal (applies Leukocyte [facility] esterase Tr to Lg to non-numeric Esterase Health [Units/volume] results) Concentration System in Urine ID Date Data Source [id number] 01/20/2019 06:20:00 PM EDT [facility] System Name Value Range Interpretation Description Data Sup porting Code Source(s) Document(s ) HIV test, NONREACTIVE Normal Normal (applies HIV test, [facility] Routine Range: Non to non-numeric Routine Health (antigen ReactiveNegative results) (antigen and System and for HIV-1 antigen antibody antibody and HIV-1/HIV-2 testing) testing) antibodies. No laboratory evidence of HIV infection.Test was performed at [facility], [address] [place] [address]. ID Date Data Source [id number] 01/20/2019 06:20:00 PM EDT [facility] System Name Value Range Interpretation Description Data Sup porting Code Source(s) Document(s ) Hepatitis B Non Normal (applies Hepatitis B [facility] Surface ReactiveReference to non-numeric [facility] Antigen. Range: Non results) Antigen. System Reactive Hepatitis B DNRTest Performed Normal (applies Hepatitis B [facility] at:[employer] to non-numeric [facility], One results) Antigen Neut System Neut [place], [place] Dennis Nickerson M.D. ID Date Data Source [id number] 01/20/2019 06:20:00 PM EDT [facility] Name Value Range Interpretation Description Data Sup porting Code Source(s) Document(s ) Hepatitis ReactiveReference Abnormal Hepatitis A [facility] A Range: (applies to Antibody. Health Antibody. NonreactiveTest non-numeric System Performed at:[facility] i4.ms results) [email or web address], [place], [place] Dennis Nickerson M.D. Hepatitis NonreactiveReferenc Normal (applies Hepatitis A [facility] A IgM e Range: to non-numeric IgM Antibody Health Antibody NonreactiveTest results) System Performed at:[facility], [place], [place] Dennis Nickerson M.D. Procedure Social History Code Duration Value Status Description Data Source(s ) Smoking 04/21/2020 Never smoked completed Never smoked [facility] 08:13:00 PM EDT tobacco tobacco (finding) Ho spital (finding) Smoking Unknown if ever completed Unknown if ever [facility] [place] [facility] Smoking Unknown if ever completed Unknown if ever [facility] [place] [facility] Vital Signs ID Date Data Source UNK Name Value Range Interpretation Code Description Data Source(s) Diastolic blood 90 mm[Hg] 90 mm[Hg] [facility] Systolic blood 109 mm[Hg] 109 mm[Hg] [facility] Respiratory rate 16 /min 16 /min [facility] Heart rate 100 /min 100 /min [facility] Body temperature 36.48128 36.24919 [facility] Body temperature 98.3 98.3 [degF] [facility] [degF] [facility] Body mass index 42.0 kg/m2 42.0 kg/m2 [facility] (BMI) [Ratio] Hospital Body weight 264.55 264.55 [lb_av] [facility] [lb_av] Hospital Body mass index 43.0 kg/m2 43.0 kg/m2 [facility] (BMI) [Ratio] Hospital Body weight 270.57 270.57 [lb_av] [facility] [lb_av] Hospital Respiratory rate 24 /min 24 /min [facility] Heart rate 100 /min 100 /min [facility] Body temperature 36.09521 36.01054 [facility] Body temperature 97.6 97.6 [degF] [facility] [degF] Hospital Diastolic blood 69 mm[Hg] 69 mm[Hg] [facility] [place] [facility] Systolic blood 115 mm[Hg] 115 mm[Hg] [facility] Diastolic blood 69 mm[Hg] 69 mm[Hg] [facility] [place] [facility] pressure [facility] Systolic blood 115 mm[Hg] 115 mm[Hg] [facility] ns pressure Hospital Respiratory rate 18 /min 18 /min [facility] Heart rate 67 /min 67 /min [facility] Body temperature 36.83246 36.17166 [facility] Body temperature 98.3 98.3 [degF] [facility] [degF] [facility] Body mass index 44.0 kg/m2 44.0 kg/m2 [facility] [place] [facility] (BMI) [Ratio] Hospital Body weight 278.58 278.58 [lb_av] [facility] ins [lb_av] Hospital Last menstrual [facility] period start date Health System Body surface area 2 m2 2 m2 [facility] ore Derived from Health Syste m formula Body mass index 34.5 kg/m2 34.5 kg/m2 [facility] (BMI) [Ratio] Health Syst em Body weight 97.06 kg 97.06 kg [facility] Measured Health System Body height 167.64 cm 167.64 cm [facility] Body temperature 98.4 0 - 200 Normal (applies to 98.4 [degF] [facility] [degF] non-numeric Health System results) Body temperature 36.8 [facility] 0 - 99.9 Normal (applies to 36.8 [facility] results) Diastolic blood 77 mm[Hg] 0 - 999 Normal (applies to 77 mm[Hg] [facility] pressure non-numeric Health System results) Systolic blood 121 mm[Hg] 0 - 999 Normal (applies to 121 mm[Hg] [facility] pressure non-numeric Health System results) Deprecated Oxygen 100 % 0 - 999 Normal (applies to 100 % [facility] saturation in non-numeric Health Sys tem Capillary blood results) by Oximetry Respiratory rate 20 0 - 999 Above high normal 20 M [facility] System Heart rate 57 0 - 999 Below low normal 57 [facility] System Body temperature 98.2 0 - 200 Normal (applies to 98.2 [degF] [facility] [degF] non-numeric Health System results) Body temperature 36.7 [facility] 0 - 99.9 Normal (applies to 36.7 [facility] non-numeric Health System results) Diastolic blood 80 mm[Hg] 0 - 999 Normal (applies to 80 mm[Hg] [facility] pressure non-numeric Health System results) Systolic blood 132 mm[Hg] 0 - 999 Normal (applies to 132 mm[Hg] [facility] pressure non-numeric Health System results) Deprecated Oxygen 99 % 0 - 999 Normal (applies to 99 % [facility] saturation in non-numeric [facility] Sys tem Capillary blood results) by Oximetry Respiratory rate 16 0 - 999 Normal (applies to 16 [facility] non-[facility] results) Heart rate 68 0 - 999 Normal (applies to 68 [facility] iore non-numeric Health System results) Last menstrual [facility] period start date Health System Body surface area 2 m2 2 m2 [facility] ore Derived from Health Syste m formula Body mass index 33.8 kg/m2 33.8 kg/m2 [facility] (BMI) [Ratio] Health Syst em Body weight 95.25 kg 95.25 kg [facility] Measured [facility] System Body height 167.64 cm 167.64 cm [facility] Patient Treatment Plan of Care Planned Activity Planned Date Details Description Data Source (s) Metronidazole 0.0075 01/20/2019 10:02:49 [facility] [employer] MG/MG Vaginal Gel PM EDT System [MetroGel] Metronidazole 500 MG Oral 01/20/2019 09:49:22 [facility] [employer] Tablet [Flagyl] PM EDT System Ibuprofen 400 MG Oral 01/20/2019 09:48:55 [facility] [employer] Tablet [Ibu] PM EDT System
--- NOTE | 2020-05-06 19:28 | PDOC ---
*Physical Exam - Vital Signs Last Vital Signs Temp Pulse Resp BP Pulse Ox 98.3 F 68 19 123/59 L 100 05/06/20 15:01 05/06/20 15:01 05/06/20 15:01 05/06/20 15:01 05/06/20 15:01 - Physical Exam 05/06/20 19:[address] Jernigan. 29 y/o F presents with continued vaginal bleeding and tvus on may 06 showed no gestational sac awaiting call back form patients pharmacy buyer for dispo ultrasound (transvaginal) echogenic and heterogenous material within endometrial cavity most likely representing blood/blood clots. no definite evidence of retained prodcts of conception trace amount of free fluid within culde de sac 05/06/20 19:27 05/06/20 20:[address] ross. pt should follow up with her over short and damage clerk within the next 5 days to trend beta-hcg pt well appaearing, irritated and asking for food. will d.c with prescription for ibuprofen. ED Treatment Course - LABORATORY CBC & Chemistry Diagram: 05/06/20 15:35 05/06/20 15:35 - ADDITIONAL ORDERS Additional order review: Laboratory Results 05/06/20 05/06/20 05/06/20 15:35 15:35 15:35 PT with INR 12.70 INR 1.08 PTT (Actin FS) 27.7 Sodium 140 Potassium 3.9 Chloride 110 H Carbon Dioxide 22 Anion Gap 7 L BUN 6.9 L Creatinine 0.7 Est GFR (CKD-EPI)AfAm 134.75 Est GFR (CKD-EPI)NonAf 116.26 Random Glucose 84 Calcium 8.6 Total Bilirubin 0.4 AST 15 ALT 15 Alkaline Phosphatase 59 Total Protein 6.9 Albumin 3.3 L Beta HCG, Quant 3892.6 Blood Type A POSITIVE Antibody Screen Negative 05/06/20 15:35 RBC 3.44 L MCV 90.3 MCHC 33.3 RDW 14.9 D MPV 8.0 D Neutrophils % 72.9 Lymphocytes % 18.5 D Monocytes % 7.4 Eosinophils % 0.5 D Basophils % 0.7 - Medications Given in the ED: ED Medications Discontinued Medications Generic Name Dose Route Start Last Admin Trade Name Freq PRN Reason Stop Dose Admin Acetaminophen 1,000 mg 05/06/20 16:44 05/06/20 17:00 Ofirmev Injection - IVPB 05/06/20 16:45 1,000 mg ONCE ONE Administration Morphine Sulfate 4 mg 05/06/20 15:29 05/06/20 15:53 Morphine Injection - IVPUSH 05/06/20 15:30 4 mg ONCE ONE Administration Morphine Sulfate 4 mg 05/06/20 16:43 05/06/20 17:17 Morphine Injection - IVPUSH 05/06/20 16:44 Not Given ONCE ONE Ondansetron HCl 4 mg 05/06/20 15:29 05/06/20 15:53 Zofran Injection IVPUSH 05/06/20 15:30 4 mg ONCE ONE Administration Discharge - Discharge Information Problems reviewed: Yes Clinical Impression/Diagnosis: Incomplete , Intractable nausea and vomiting Disposition: HOME - Follow up/Referral Referrals: Nikita Sexton [Primary Care Provider] - - Patient Discharge Instructions Patient Printed Discharge Instructions: DI for Miscarriage Additional Instructions: You should return to the hospital if you continue to have, persistent pelvic pain not relieved by your prescribed medications, dizziness, shortness of breath, new and persistent fevers, other foul smelling discolored vaginal discharge, or for any other concerns. Follow up with you pharmacy buyer in the next 1-5 days to recheck your beta-hcg levels. - Post Discharge Activity
--- NOTE | 2020-05-06 21:14 | PDOC ---
*Physical Exam - Vital Signs Last Vital Signs Temp Pulse Resp BP Pulse Ox 98.3 F 68 19 123/59 L 100 05/06/20 15:01 05/06/20 15:01 05/06/20 15:01 05/06/20 15:01 05/06/20 15:01 ED Treatment Course - LABORATORY CBC & Chemistry Diagram: 05/06/20 15:35 05/06/20 15:35 - ADDITIONAL ORDERS Additional order review: Laboratory Results 05/06/20 05/06/20 05/06/20 15:35 15:35 15:35 PT with INR 12.70 INR 1.08 PTT (Actin FS) 27.7 Sodium 140 Potassium 3.9 Chloride 110 H Carbon Dioxide 22 Anion Gap 7 L BUN 6.9 L Creatinine 0.7 Est GFR (CKD-EPI)AfAm 134.75 Est GFR (CKD-EPI)NonAf 116.26 Random Glucose 84 Calcium 8.6 Total Bilirubin 0.4 AST 15 ALT 15 Alkaline Phosphatase 59 Total Protein 6.9 Albumin 3.3 L Beta HCG, Quant 3892.6 Blood Type A POSITIVE Antibody Screen Negative 05/06/20 15:35 RBC 3.44 L MCV 90.3 MCHC 33.3 RDW 14.9 D MPV 8.0 D Neutrophils % 72.9 Lymphocytes % 18.5 D Monocytes % 7.4 Eosinophils % 0.5 D Basophils % 0.7 - Medications Given in the ED: ED Medications Discontinued Medications Generic Name Dose Route Start Last Admin Trade Name Freq PRN Reason Stop Dose Admin Acetaminophen 1,000 mg 05/06/20 16:44 05/06/20 17:00 Ofirmev Injection - IVPB 05/06/20 16:45 1,000 mg ONCE ONE Administration Lorazepam 1 mg 05/06/20 18:59 05/06/20 19:37 Ativan Injection - IVPUSH 05/06/20 19:00 Not Given ONCE ONE Morphine Sulfate 4 mg 05/06/20 15:29 05/06/20 15:53 Morphine Injection - IVPUSH 05/06/20 15:30 4 mg ONCE ONE Administration Morphine Sulfate 4 mg 05/06/20 16:43 05/06/20 17:17 Morphine Injection - IVPUSH 05/06/20 16:44 Not Given ONCE ONE Ondansetron HCl 4 mg 05/06/20 15:29 05/06/20 15:53 Zofran Injection IVPUSH 05/06/20 15:30 4 mg ONCE ONE Administration Medical Decision Making - Medical Decision Making 05/06/20 21:12 a/p: 29yo female signed out pending labs, ultrasound and discussion with stranding machine operator beta 3800 tvus reviewed, blood clots in the endometrial lining rh+ resident discussed the case with Dr. Henry who recommended follow up with pts [employer]CRET[employer] after multiple calls to [facility] [employer] - discussed with resident promotional representative who took pts info and will help arrange for follow up with Dr. Madsen pt updated and agrees to call her stranding machine operator tomorrow discussed all reasons to return to the ER and answered all questions Discharge - Discharge Information Problems reviewed: Yes Clinical Impression/Diagnosis: Incomplete , Intractable nausea and vomiting Condition: Stable Disposition: HOME - Admission No - Additional Discharge Information Prescriptions: Ibuprofen 600 mg PO Q6H #30 tablet - Follow up/Referral Referrals: Nikita Sexton [Primary Care Provider] - - Patient Discharge Instructions Patient Printed Discharge Instructions: DI for Miscarriage Additional Instructions: You should return to the hospital if you continue to have, persistent pelvic pain not relieved by your prescribed medications, dizziness, shortness of breath, new and persistent fevers, other foul smelling discolored vaginal discharge, or for any other concerns. Follow up with you insurance healthcare consultant in the next 1-5 days to recheck your beta-hcg levels. - Post Discharge Activity
== END 2020-05-06 21:18 | disposition home or self-care (01) ==
LOC: JER 14:29
PROC: 3E033NZ Introduction of Analgesics, Hypnotics, Sedatives into Peripheral Vein, Percutaneous Approach (ICD-10-PCS; principal; 2020-05-06)
PROC: 3E033GC Introduction of Other Therapeutic Substance into Peripheral Vein, Percutaneous Approach (ICD-10-PCS; 2020-05-06)
DX: O03.4 Incomplete spontaneous abortion without complication (principal); R11.2 Nausea with vomiting, unspecified
CPT/HCPCS: 36415; 76830-TC; 80053; 84443; 84702; 85025; 85610; 85730; 86850; 86900; 86901; 99285-25; J0131